=== PATIENT | male | born 1985 | race Caucasian/White ===

== ENCOUNTER 2016-07-07 22:31 | Emergency (ER) | payer MEDICAID ==
[~2016-07-07] VITALS: Ht 185.4 cm; Wt 81.0 kg
[~2016-07-07 22:31] MED LIST: NO MEDS
[2016-07-08] MEDS ORDERED: TETANUS/DIPHTHERIA TOXOID [ADULT] 0.5 ML SYRINGE IM ONE (02:30)
[2016-07-08 02:56] VITALS: BP 118/74
== END 2016-07-08 03:04 | disposition home or self-care (01) ==
LOC: EMS 22:33
DX: S61.411A Laceration without foreign body of right hand, initial encounter (principal); F17.210 Nicotine dependence, cigarettes, uncomplicated; W22.03XA Walked into furniture, initial encounter; Y93.89 Activity, other specified; Y92.9 Unspecified place or not applicable; Y99.9 Unspecified external cause status
CPT/HCPCS: 12001; 90471; 90714; 99284

== ENCOUNTER 2016-07-15 14:03 | Emergency (ER) | payer MEDICAID ==
[~2016-07-15] VITALS: Ht 172.7 cm; Wt 72.7 kg
[2016-07-15 14:29] VITALS: BP 120/83
== END 2016-07-15 14:44 | disposition home or self-care (01) ==
LOC: EMS 14:04
DX: Z48.02 Encounter for removal of sutures (principal); F17.210 Nicotine dependence, cigarettes, uncomplicated
CPT/HCPCS: 99281

== ENCOUNTER 2017-09-26 21:22 | Inpatient (IN) | payer SELFPAY ==
[~2017-09-26] VITALS: Ht 167.6 cm; Wt 65.0 kg
[2017-09-26 22:15] LABS: BASOPHILS % (AUTO) 0.7 % (0.0-2.0); EOSINOPHILS % (AUTO) 0.4 % (1.0-6.0); HEMATOCRIT 50.5 % (41-53); HEMOGLOBIN 17.6 g/dL (13.5-17.5); LYMPHOCYTES # (AUTO) 1.3 K/uL (1.0-4.8); MEAN CORPUSCULAR HEMOGLOBIN 34.4 pg (26.0-34.0); MEAN CORPUSCULAR VOLUME 98 fL (80-100); MONOCYTES # (AUTO) 0.7 K/uL (0.1-1.0); NEUTROPHILS # (AUTO) 5.6 K/uL (1.8-7.7); NEUTROPHILS % (AUTO) 72.9 % (40.0-70.0); PLATELET COUNT (AUTO) 224 K/uL (150-450); RED BLOOD CELL COUNT(AUTO) 5.13 MIL/uL (4.50-5.90); RED CELL DISTRIBUTION WIDTH 12.3 % (11.5-14.5)
[2017-09-26] MEDS ORDERED: TETANUS/DIPHTHERIA TOXOID [ADULT] 0.5 ML SYRINGE IM ONE (22:15)
[2017-09-26] MEDS ORDERED: LIDOCAINE HCL 1% 10 ML VIAL INJ ONE (22:30)
[2017-09-26 22:34] LABS: ANION GAP 11 mmol/L (8-16); CALCIUM, TOTAL 8.3 mg/dL (8.8-10.5); CARBON DIOXIDE 25 mmol/L (22-29); CHLORIDE 105 mmol/L (98-107); CREATININE 1.06 mg/dL (0.60-1.30); GLOMERULAR FILTR. RATE CALC > 60 mL/min (>60); GLUCOSE,RANDOM 106 mg/dL (70-110); SODIUM SERUM 141 mmol/L (136-145); UREA NITROGEN, BLOOD 11 mg/dL (7-18)
[2017-09-26 22:39] LABS: ALANINE AMINOTRANSFERASE 54 U/L (12-78); ALKALINE PHOSPHATASE 96 U/L (46-116); ASPARTATE AMINOTRANSFERASE 54 U/L (15-37); BILIRUBIN,TOTAL 0.4 mg/dL (0.1-1.0); TOTAL PROTEIN, SERUM 8.6 g/dL (6.4-8.2)
[2017-09-26 22:44] LABS: ALBUMIN 4.4 g/dL (3.4-5.0)
[2017-09-26] MEDS ORDERED: BACITRACIN 0.9 GM PACKET OINTMENT TP ONE (22:45)
[2017-09-26] MEDS ORDERED: LORazepam 2 MG TABLET PO PRN (23:30)
[2017-09-26] MEDS ORDERED: HALOPERIDOL 5 MG TABLET PO PRN (23:30)
[2017-09-26] MEDS ORDERED: ACETAMINOPHEN 325 MG TABLET PO PRN (23:30)
[2017-09-26] MEDS ORDERED: ZOLPIDEM TARTRATE 10 MG TABLET PO PRN (23:30)
[2017-09-27 01:18] LABS: AMPHET/METH SCREEN,URINE NEGATIVE (NEGATIVE); BARBITURATE SCREEN, URINE NEGATIVE (NEGATIVE); BENZODIAZEPINES SCREEN,URINE NEGATIVE (NEGATIVE); CANNABINOID SCREEN,URINE NEGATIVE (NEGATIVE); COCAINE SCREEN,URINE NEGATIVE (NEGATIVE); METHADONE SCREEN, URINE NEGATIVE (NEGATIVE); OPIATE SCREEN,URINE NEGATIVE (NEGATIVE)
[2017-09-27 01:22] LABS: PHENCYCLIDINE SCREEN,URINE NEGATIVE (NEGATIVE)
[2017-09-27] MEDS ORDERED: LORazepam 2 MG/ML VIAL IM ONE (02:30)
[2017-09-27] MEDS ORDERED: DiphenhydrAMINE HCL 50 MG/ML VIAL IM ONE (02:30)
[2017-09-27] MEDS ORDERED: HALOPERIDOL LACTATE 5 MG/ML VIAL IM ONE (02:30)
[2017-09-27 03:11] LABS: CHOL/HDL RATIO 3.9 (4.2-7.3); CHOLESTEROL 274 mg/dL (131-200); HDL CHOLESTEROL 70 mg/dL (40-60); LDL CHOL (CALC.) 150 mg/dL (0-130); TRIGLYCERIDES 271 mg/dL (15-150)
[2017-09-27 05:51] VITALS: BP 126/72
[2017-09-27 08:53] VITALS: BP 121/70
[2017-09-27] MEDS: BACITRACIN 28.4 GM OINTMENT TP SCH ×2 (12:54→16:28)
[2017-09-27 16:23] VITALS: BP 122/70
[2017-09-27] MEDS: MIRTAZAPINE 15 MG TABLET PO SCH (20:16)
[2017-09-28 08:00] VITALS: BP 129/75
[2017-09-28] MEDS: NALTREXONE HCL 50 MG TABLET PO SCH (09:09)
[2017-09-28] MEDS ORDERED: LORazepam 2 MG TABLET PO PRN (09:30)
[2017-09-28] MEDS ORDERED: LOPERAMIDE HCL 2 MG CAPSULE PO PRN (09:45)
[2017-09-28] MEDS ORDERED: CYANOCOBALAMIN 1,000 MCG/ML VIAL IM ONE (09:45)
[2017-09-28] MEDS ORDERED: GuaiFENesin/D-METHORPHAN [SUGAR-FREE] 200-20MG/10 ML SYRUP UDCUP PO PRN (09:45)
[2017-09-28] MEDS ORDERED: HydrOXYzine PAMOATE 50 MG CAPSULE PO PRN (09:45)
[2017-09-28] MEDS: LORazepam 2 MG TABLET PO SCH ×4 (10:08→21:46)
[2017-09-28] MEDS: MULTIVITAMINS WITH MINERALS, THERAPEUTIC TABLET PO SCH (10:08)
[2017-09-28] MEDS: THIAMINE HCL 100 MG TABLET PO SCH ×2 (10:08→18:00)
[2017-09-28] MEDS: FOLIC ACID 1 MG TABLET PO SCH (10:08)
[2017-09-28 10:26] VITALS: BP 129/75
[2017-09-28] MEDS: BACITRACIN 28.4 GM OINTMENT TP SCH ×2 (10:41→18:00)
[2017-09-28 20:08] VITALS: BP 124/72
[2017-09-28] MEDS: MIRTAZAPINE 15 MG TABLET PO SCH (21:46)
[2017-09-29] MEDS: MULTIVITAMINS WITH MINERALS, THERAPEUTIC TABLET PO SCH (08:00)
[2017-09-29] MEDS: THIAMINE HCL 100 MG TABLET PO SCH ×2 (08:00→17:52)
[2017-09-29] MEDS: NALTREXONE HCL 50 MG TABLET PO SCH (08:00)
[2017-09-29] MEDS: FOLIC ACID 1 MG TABLET PO SCH (08:00)
[2017-09-29] MEDS: LORazepam 2 MG TABLET PO SCH ×4 (08:00→21:49)
[2017-09-29] MEDS: BACITRACIN 28.4 GM OINTMENT TP SCH ×2 (09:58→17:52)
[2017-09-29 10:16] VITALS: BP 119/83
[2017-09-29 10:40] VITALS: BP 119/83
[2017-09-29 16:00] VITALS: BP 125/92
[2017-09-29] MEDS: MIRTAZAPINE 15 MG TABLET PO SCH (21:48)
[2017-09-30] MEDS: MULTIVITAMINS WITH MINERALS, THERAPEUTIC TABLET PO SCH (08:19)
[2017-09-30] MEDS: THIAMINE HCL 100 MG TABLET PO SCH (08:19)
[2017-09-30] MEDS: NALTREXONE HCL 50 MG TABLET PO SCH (08:19)
[2017-09-30] MEDS: FOLIC ACID 1 MG TABLET PO SCH (08:19)
[2017-09-30] MEDS ORDERED: LORazepam 1 MG TABLET PO SCH (09:00)
[2017-09-30] MEDS ORDERED: LORazepam 1 MG TABLET PO PRN (09:30)
[2017-09-30] MEDS: BACITRACIN 28.4 GM OINTMENT TP SCH (09:39)
[2017-09-30 09:55] VITALS: BP 145/80
[2017-09-30 09:57] VITALS: BP 145/80
[2017-09-30] MEDS ORDERED: LORA1TAB3 PO (10:19)
[2017-09-30] MEDS ORDERED: NALT50TA6 PO (10:20)
[2017-09-30] MEDS ORDERED: MIRT15 PO (10:20)
[2017-09-30] MEDS ORDERED: FOLI1 PO (10:21)
[2017-09-30] MEDS ORDERED: MULT-1239 PO (10:22)
[2017-09-30] MEDS ORDERED: THIA100T67 PO (10:22)
[2017-10-01] MEDS ORDERED: LORazepam 1 MG TABLET PO PRN (07:00)
== END 2017-09-30 12:45 | disposition home or self-care (01) | DRG 885 ==
LOC: EMS 21:23 → 3EC 09-27 05:17
PROVIDERS: ADMIT Psychiatry & Neurology Psychiatry; ATTEND Psychiatry & Neurology Psychiatry
DX: F33.2 Major depressive disorder, recurrent severe without psychotic features (principal); R45.851 Suicidal ideations; E78.5 Hyperlipidemia, unspecified; F10.129 Alcohol abuse with intoxication, unspecified; X58.XXXA Exposure to other specified factors, initial encounter; F25.9 Schizoaffective disorder, unspecified; S51.811A Laceration without foreign body of right forearm, initial encounter; F19.10 Other psychoactive substance abuse, uncomplicated; S51.812A Laceration without foreign body of left forearm, initial encounter; R74.0 Nonspecific elevation of levels of transaminase and lactic acid dehydrogenase [LDH]; F17.210 Nicotine dependence, cigarettes, uncomplicated; Z91.19 Patient's noncompliance with other medical treatment and regimen; Y93.89 Activity, other specified; Y92.89 Other specified places as the place of occurrence of the external cause; Y99.8 Other external cause status; Z71.41 Alcohol abuse counseling and surveillance of alcoholic; Z71.51 Drug abuse counseling and surveillance of drug abuser
CPT/HCPCS: 90714; 96372; 99285; G0480; J1200; J1630; J2060; J3420; J3490